=== PATIENT | female | born 1995 | race Caucasian/White ===

== ENCOUNTER 2022-01-12 10:38 | Outpatient (CLI) | payer OTHER | END 2022-01-12 10:39 | disposition home or self-care (01) | LOC: EDBD 10:38 → CSHLAB 10:38 | PROVIDERS: ATTEND Obstetrics & Gynecology | DX: Z20.822 Contact with and (suspected) exposure to COVID-19 (principal) | CPT/HCPCS: 87811 ==

== ENCOUNTER 2022-01-13 07:44 | Inpatient (IN) | payer OTHER ==
[2022-01-13] MEDS ORDERED: Bupivacaine 0.25% HCL 30 ML VIAL ONE (08:00)
[2022-01-13] MEDS ORDERED: Fentanyl 2 mcg/Bup 0.1% Cadd 100 ML ONE ×2 (08:51→16:48)
[2022-01-13 09:04] LABS: Hemoglobin 11.5 g/dL (12.0-15.5); Mean Corpuscular HGB CONC 34.3 g/dL (32.0-36.0); Mean Corpuscular Hemoglobin 30.1 pg (27.0-33.0); Mean Corpuscular Volume 87.7 fl (81.6-98.3); Mean Platelet Volume 11.9 fl (7.4-10.4); Platelet Count 210 10x3/uL (150-450); RBC Distribution Width 13.2 % (11.5-14.5); Red Blood Cell (RBC) Count 3.82 10x6/uL (3.90-5.03)
[2022-01-13 10:05] VITALS: BMI 34.4
[2022-01-13] MEDS ORDERED: NS w/ Oxytocin 30 units 500 ML IVPB SCH (11:30)
[2022-01-13] MEDS ORDERED: Lidocaine 1% (PF) 30 ML VIAL SC PRN (11:30)
[2022-01-13] MEDS ORDERED: NS w/ Oxytocin 30 units 500 ML IV SCH ×2 (11:30→19:00)
[2022-01-13 11:36] LABS: HBSAg Index 0.24 S/CO (0-0.99); Hep B Surf Ag Non-Reactive S/CO (NonReactive); Syphilis Antibody Nonreactive (Nonreactive); Syphilis Antibody Index 0.04 S/CO (<1.00 Non-Reactive)
[2022-01-13] MEDS ORDERED: Diphenoxylate HCl/Atropine Tablet PO PRN ×2 (11:45)
[2022-01-13] MEDS ORDERED: Ibuprofen 800 MG TAB PO PRN (11:45)
[2022-01-13] MEDS ORDERED: Butorphanol Tartrate 1 MG/ML VIAL SLOW IVP PRN (11:45)
[2022-01-13] MEDS ORDERED: Lactated Ringer's 1,000 ML IV SCH (11:45)
[2022-01-13] MEDS ORDERED: Acetaminophen 500 MG TAB PO PRN (11:45)
[2022-01-13] MEDS ORDERED: Misoprostol 200 MCG TAB RC PRN (11:45)
[2022-01-13] MEDS ORDERED: hydrALAZINE 20 MG/ML VIAL SLOW IVP PRN ×2 (11:45→18:50)
[2022-01-13] MEDS ORDERED: Ondansetron PF 4 MG/2 ML Vial ONE (12:39)
[2022-01-13] MEDS ORDERED: Acetaminophen 325 MG TAB PO SCH (13:45)
[2022-01-13] MEDS ORDERED: diphenhydrAMINE 50 MG/ML VIAL ONE (16:13)
[2022-01-13] MEDS ORDERED: Fentanyl 100 MCG/2 ML VIAL ONE (17:05)
[2022-01-13] MEDS ORDERED: Benzocaine-Menthol 82.5 ML CAN TOP PRN (18:50)
[2022-01-13] MEDS ORDERED: HYDROcodone/Acetaminophen 5/325 mg Tablet PO PRN ×2 (18:50)
[2022-01-13] MEDS ORDERED: Misoprostol 200 MCG TAB VAG PRN (18:50)
[2022-01-13] MEDS ORDERED: diphenhydrAMINE 25 MG CAP PO PRN (18:50)
[2022-01-13] MEDS ORDERED: Milk Of Magnesia 30 ML UDCUP PO PRN (18:50)
[2022-01-13] MEDS ORDERED: Boostrix 0.5 ML (Tdap) VIAL (>/=7 yrs of age) IM ONE (18:50)
[2022-01-13] MEDS ORDERED: Ondansetron PF 4 MG/2 ML Vial IVP PRN (18:50)
[2022-01-13] MEDS ORDERED: Lanolin Ointment 7 GM TUBE TOP PRN (18:50)
[2022-01-13] MEDS ORDERED: Zolpidem Tartrate 5 MG TAB PO PRN (18:50)
[2022-01-13] MEDS ORDERED: Bisacodyl 10 MG SUPP PR PRN (18:50)
[2022-01-13] MEDS ORDERED: Witch Hazel-Glycerin 1 EACH JAR TOP PRN (18:52)
[2022-01-13] MEDS ORDERED: Docusate 100 MG CAP PO SCH (21:00)
[2022-01-13] MEDS: Docusate 100 MG CAP PO SCH (22:54)
[2022-01-13] MEDS: Ibuprofen 800 MG TAB PO SCH (22:55)
[2022-01-14 04:38] LABS: Hemoglobin 9.7 g/dL (12.0-15.5); Mean Corpuscular HGB CONC 33.9 g/dL (32.0-36.0); Mean Corpuscular Volume 88.5 fl (81.6-98.3); Mean Platelet Volume 11.1 fl (7.4-10.4); Platelet Count 172 10x3/uL (150-450); RBC Distribution Width 13.4 % (11.5-14.5); Red Blood Cell (RBC) Count 3.23 10x6/uL (3.90-5.03); White Blood Cell (WBC) Count 13.2 10x3/uL (3.5-10.5)
[2022-01-14] MEDS: Ibuprofen 800 MG TAB PO SCH ×3 (05:46→21:28)
[2022-01-14] MEDS: Prenatal Vitamin 1 TAB PO SCH (09:37)
[2022-01-14] MEDS: Docusate 100 MG CAP PO SCH ×2 (09:37→21:29)
[2022-01-14] MEDS: Ferrous Sulfate 325 MG TAB PO SCH ×2 (09:37→17:58)
[2022-01-15] MEDS: Ibuprofen 800 MG TAB PO SCH (05:18)
[2022-01-15 08:36] VITALS: BP 119/69; TEMP 97.6
[2022-01-15] MEDS: Docusate 100 MG CAP PO SCH (09:26)
[2022-01-15] MEDS: Prenatal Vitamin 1 TAB PO SCH (09:26)
[2022-01-15] MEDS: Ferrous Sulfate 325 MG TAB PO SCH (09:26)
== END 2022-01-15 13:30 | disposition home or self-care (01) | DRG 807 ==
LOC: EDBD → CSHLD 07:44 → CSHPP 21:57
PROVIDERS: ADMIT Obstetrics & Gynecology; ATTEND Obstetrics & Gynecology
PROC: 0W8NXZZ Division of Female Perineum, External Approach (ICD-10-PCS; principal; 2022-01-13)
PROC: 10907ZC Drainage of Amniotic Fluid, Therapeutic from Products of Conception, Via Natural or Artificial Opening (ICD-10-PCS; 2022-01-13)
PROC: 0T9B70Z Drainage of Bladder with Drainage Device, Via Natural or Artificial Opening (ICD-10-PCS; 2022-01-13)
PROC: 10E0XZZ Delivery of Products of Conception, External Approach (ICD-10-PCS; 2022-01-13)
DX: O70.0 First degree perineal laceration during delivery (principal); Z37.0 Single live birth; Z3A.39 39 weeks gestation of pregnancy; Z20.822 Contact with and (suspected) exposure to COVID-19; Z79.899 Other long term (current) drug therapy; O99.344 Other mental disorders complicating childbirth; F31.9 Bipolar disorder, unspecified; Z88.0 Allergy status to penicillin; F41.9 Anxiety disorder, unspecified
CPT/HCPCS: 36415; 51702; 85027; 86780; 86850; 86900; 86901; 87340; J2405; J2590; S0020